=== PATIENT | male | born 1955 | race Caucasian/White ===

== ENCOUNTER 2017-12-04 16:34 | Observation (INO) | payer OTHER ==
[~2017-12-04] VITALS: Ht 180.3 cm; Wt 119.3 kg
[2017-12-04 16:38] VITALS: BP 169/91
[2017-12-04] MEDS ORDERED: ZOLOFT50 MG (16:42)
[2017-12-04] MEDS ORDERED: HUMALOG100 UNIT/1 SUBQ (16:52)
[2017-12-04 17:15] LABS: RBC 4.41 mil/uL (4.50-6.00)
[2017-12-04 17:19] LABS: ANION GAP 12 mmol/L (7-16); BUN 15 mg/dL (7-18); CALCIUM 8.8 mg/dL (8.5-10.1); CHLORIDE 97 mmol/L (98-107); CO2 25 mmol/L (21-32); CREATININE 1.2 mg/dL (0.6-1.3); GLUCOSE 162 mg/dL (70-99); POTASSIUM 3.8 mmol/L (3.5-5.1); SODIUM 134 mmol/L (136-145)
[2017-12-04 17:23] LABS: HEMOGLOBIN 13.7 gm/dL (14.0-18.0); MCH 31.1 pg (26.0-34.0); MCHC 33.5 g/dL (28.0-37.0); MCV 92.9 fL (80.0-100.0); MPV 8.4 fl. (7.2-11.1); NUCLEATED RBCS 1 /100WBC; PLATELET COUNT* 92 thou/uL (150-400); RDW-CV 16.2 % (10.5-14.5); WBC 6.8 thou/uL (4.0-11.0)
[2017-12-04 17:28] LABS: APTT 25.2 Seconds (25.0-31.3); PROTIME 10.5 Seconds (9.20-11.50)
[2017-12-04 17:30] LABS: ALBUMIN 3.2 g/dL (3.4-5.0); ALKALINE PHOSPHATASE 152 U/L (46-116); LIPASE 206 U/L (73-393); NT-PRO BRAIN NAT PEPTIDE 36 pg/mL (<300); SGOT 34 U/L (15-37); SGPT 22 U/L (30-65); TOTAL BILIRUBIN 0.6 mg/dL (<0.1-1.0); TOTAL PROTEIN 6.6 g/dL (6.4-8.2); TROPONIN-I LEVEL <0.06 ng/mL (<0.06)
[2017-12-04 17:58] LABS: ABSOLUTE MONOCYTES 0.6 thou/uL (0.0-1.2); ABSOLUTE NEUTROPHILS 3.2 thou/uL (1.6-8.1)
[2017-12-04 18:00] LABS: ANISOCYTOSIS 1+
[2017-12-04 18:01] LABS: PLATELET ESTIMATE DECREASED; POLYCHROMASIA Occasional
[2017-12-04 18:57] VITALS: BP 138/72
[2017-12-04 19:15] VITALS: BP 155/81
[2017-12-04] MEDS ORDERED: COZAAR 25 MG TA25 MG PO (21:30)
[2017-12-04] MEDS ORDERED: SERTRALINE HCL50 MG PO (21:31)
[2017-12-05] VITALS: BP 134/71
[2017-12-05 04:00] VITALS: BP 119/68
--- NOTE | 2017-12-05 04:52 | NUR ---
PT ARRIVED TO UNIT AT 1910 VIA CART. REPORT RECEIVED FROM ANDRE SWEENEY. SPOUSE AT BEDSIDE. 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 IV MORPHINE ADMINSTERED FOR CHEST PAIN, PT VOICED RELIEF. PT NPO PER CARDIOLOGY. PT EDUCATED AND VOICED UNDERSTANDING. HOURLY ROUNDING COMPLETED. CALL LIGHT WITHIN REACH.
[2017-12-05 08:00] VITALS: BP 151/73
--- NOTE | 2017-12-05 10:03 | EKG ---
[place] [address] ELECTROCARDIOGRAM REPORT Name: KAL LAWRENCE Room: [address]R.#: [id number] Admission: 12/04/17 Attend Phys: Tony Elias MD Discharge: Date of : 57 Report #: [id number] THIS REPORT FOR: //name// [facility] ED Test Date: 2017-12-04 Test Time: 16:38:25 Pat Name: KAL LAWRENCE Department: Room: [facility] Gender: Sql Report Analyst: Debo MATHUR : 1955 Requested By: Camille Reeves Order Number: [id number] MD: Marcos Rojo Measurements Intervals [place] Rate: 112 P: 50 OK: 201 QRS: -61 QRSD: 98 T: 83 QT: 317 QTc: 433 Interpretive Statements Sinus tachycardia Ventricular premature complex Inferior infarct, old Baseline wander in lead(s) V2 No previous ECG available for comparison Electronically Signed On 12-05-2017 10:03:34 CDT by Marcos Rojo [email or web address] <ELECTRONICALLY SIGNED> By: Marcos Rojo MD, FAC 12/05/17 1003 1638 1638 Marcos Rojo MD, [facility] /EPI
--- NOTE | 2017-12-05 10:10 | EKG ---
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: [facility] : 1955 Requested By: Tony Elias Order Number: [id number] Akosua MD: Marcos Rooj Measurements Intervals [place] Rate: 95 P: 232 [place]: 141 QRS: -44 QRSD: 101 T: 56 QT: 364 QTc: 458 Interpretive Statements Sinus or ectopic atrial rhythm ventricular premature complexes Left axis deviation Baseline wander in lead(s) V2,V4,V5,V6 Electronically Signed On 12-05-2017 10:10:11 CDT by Marcos Rojo [email or web address] <ELECTRONICALLY SIGNED> By: Marcos Rojo MD, [facility] 12/05/17 1010 0009 [id number] Marcos Rojo MD, [facility] /EPI
--- NOTE | 2017-12-05 10:12 | EKG ---
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
--- NOTE | 2017-12-05 11:00 | NUR ---
ATTEMPTED TO SEE PT, WAS OFF UNIT
[2017-12-05 14:00] VITALS: BP 151/73
--- NOTE | 2017-12-05 14:27 | EXE ---
[place] [address] STRESS ECHOCARDIOGRAM Name: KAL LAWRENCE Wesly Room: [address] MAneudyRAneudy#: [id number] Admission: 12/04/17 Attend Phys: Tony Elias, Discharge: Date of : 57 Date of Service: 12/05/17 1426 Report #: [id number] THIS REPORT FOR: //name// APPROVED REPORT Study performed: 12/05/2017 11:28:47 Exam: Stress Echocardiogram Indication: Chest pain , Dyspnea Patient Location: In-Patient Stress Nurse: Mary Lemus RN Room #: [facility] Supervising Physician: Marcos Rojo MD Ht: 5 ft 11 in HR: 91 bpm BP: 158/81 mmHg Medical History Cardiac Risk Factors: HTN, Hyperlipidemia, DM, Tobacco History (Former) Procedure The patient underwent an Exercise Stress Test using the Hemanth Protocol. Blood pressure, heart rate, and EKG were monitored. An Echocardiogram was performed by rehabilitation therapy technician in four stages in quad fashion. At peak stress, four selected images were obtained and placed side by side with resting images for comparison. Stress Test Details Stress Test: Exercise stress testing was performed using a Hemanth protocol. HR Resting HR: 91 bpm Max Heart Rate (APMHR): 159 bpm Max HR Achieved: 150 bpm Target HR (85% APMHR): 135 bpm % of APMHR: 94 Recovery HR: 103 bpm HR response to stress: Normal HR response to stress BP Resting BP: 158/81 mmHg Max BP: 233/77 mmHg Recovery BP: 175/83 mmHg ECG Resting ECG: Sinus Rhythm, nonspecific ST-T [address] [address] STRESS ECHOCARDIOGRAM Name: KAL LAWRENCE Room: [address]#: [id number] Admission: 12/04/17 Attend Phys: Tony Elias, Discharge: Date of : 57 Date of Service: 12/05/17 1426 Report #: [id number] Stress ECG: Sinus Tachycardia Maximum ST Deviation: 0 mm Arrhythmia: None Recovery ECG: Sinus Rhythm, nonspecific ST-T abnormalities Recovery ST Deviation: 0 mm Recovery Arrhythmia: None Clinical Reason for Termination: Completed protocol, Dyspnea Exercise duration: 4 min 59 sec Highest Stage Achieved: Stage 2: 2.5 mph at 12% grade. Exercise capacity: 7.00 METs Pre-Stress Echo The resting Echocardiogram showed normal left ventricular contractility with an estimated Ejection Fraction of about 55-60%. Post-Stress Echo The stress Echocardiogram showed normal left ventricular contractility with an estimated Ejection Fraction of about 65-70%. Conclusion Clinical Response: Non-ischemic Exercise Capacity: Below Average Stress ECG Response: Non-ischemic Stress Echo Images: Non-ischemic low risk stress echo for future cardiac events Other Information Study Quality: Adequate <Conclusion> low risk stress echo for future cardiac events <ELECTRONICALLY SIGNED> By: Marcos Rojo MD, FACC 12/05/171425 25 25 Marcos Rojo MD, FACC /INF
[2017-12-05] MEDS ORDERED: CARVEDILOL3.125 MG PO (15:14)
--- NOTE | 2017-12-05 15:17 | NUR ---
DR. MANUEL ROUNDED AND STATED STRESS ECHO WAS NORMAL. OK FOR PATIENT TO DC. DR. DUNBAR ARRANGED OUTPATIENT ONCOLOGY APPT FOR CT FINDINGS.
--- NOTE | 2017-12-05 15:23 | NUR ---
PER DR. MANUEL PATIENT DOES NOT NEED TO DC ON [facility].
[2017-12-05 15:35] VITALS: BP 130/71
--- NOTE | 2017-12-05 15:46 | NUR ---
PATIENT DISCHARGED TO HOME AT THIS TIME. IV REMOVED. ONCOLOGY APPT MADE FOR PATIENT PRIOR TO DC. NO NEW SCRIPTS PROVIDED PER DR. MANUEL. PATIENT AND SPOUSE VERBALIZE UNDERSTANDING OF DC INSTRUCTIONS.
--- NOTE | 2017-12-07 15:13 | CON ---
[address] [address] CONSULTATION Name: KAL LAWRENCE Wesly Room: [address] Samson Odonnell#: [id number] Admission: 12/04/17 Attend Phys: Tony Elias MD Discharge: 12/05/17 Date of : 57 Report #: [id number] THIS REPORT FOR: //name// CC: Tony Escamilla DO Patient's Chart DATE OF SERVICE: 12/05/2017 CARDIOLOGY CONSULTATION PRIMARY CARE PHYSICIAN: Alyce Escamilla DO HISTORY OF PRESENT ILLNESS: The patient is a 62-year-old white male who I was asked to see in the hospital after he complained of chest pain. The patient has no previous history of heart disease. He does not exercise on a regular basis. He has had no previous cardiac evaluation. For the past several days, he has had intermittent dull ache on the left side of the chest that radiates around into his back. It is not related to exertion or meals. That lasts for several minutes and resolves. It tends to come and go. It is worse if he takes a deep breath. He denied any fever or cough. He has noticed some diaphoresis and shortness of breath, but no nausea. He has had no bleeding. Denied any trauma to his chest or rash. He has had no palpitations or syncope. He came to the Emergency Room yesterday and was noted to have an abnormal ECG. He was admitted for further evaluation and treatment. PAST MEDICAL HISTORY: Otherwise significant for removal of a melanoma from his back. He has a history of hypertension, diabetes, hyperlipidemia. MEDICATIONS: Consists of insulin therapy, losartan, sertraline. He was recently started on Lipitor. ALLERGIES: He has no known drug allergies. FAMILY HISTORY: His mother had heart disease. SOCIAL HISTORY: He is , lives in [place]. 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 Quit smoking years ago. No alcohol abuse. REVIEW OF SYSTEMS: He has had no history of stroke, asthma, peptic ulcer disease, liver disease, kidney disease or cancer. He has a history of depression. No chronic skin condition. PHYSICAL EXAMINATION: GENERAL: Revealed a middle-aged male, [place] [address] CONSULTATION Name: KAL LAWRENCE [address] [id number] Admission: 12/04/17 Attend Phys: Tony Elias MD Discharge: 12/05/17 Date of : 57 Report #: [id number] VITAL SIGNS: He had a blood pressure of 140/70, pulse is 90, he is afebrile. HEENT: He is anicteric. Conjunctivae pink. Mucous membranes moist. NECK: Veins nondistended. No carotid bruits. Neck supple. CHEST: Clear to auscultation. CARDIOVASCULAR: Regular rate and rhythm. ABDOMEN: Soft, nontender. EXTREMITIES: Had no edema. Posterior tibial pulse 2+ bilaterally. SKIN: Warm, dry. NEUROLOGIC: Nonfocal. ECG shows a sinus rhythm, left anterior fascicular block, septal Q-waves. His workup yesterday in the Emergency Room, he had a portable chest x-ray that showed normal heart size, clear lung jovel. He had a CT scan of the chest using a PE protocol that showed no pulmonary embolus, mild interstitial lung markings noted, hepatosplenomegaly and adenopathy noted. LABORATORY DATA: He had a lab work done, sodium 137, creatinine 0.8, alkaline phosphatase 131, bilirubin 0.7, albumin 2.9, troponin 0.06. White blood cell count 5.8, hemoglobin 11.8, platelet count is only 79,000. IMPRESSION AND RECOMMENDATIONS: 1. Chest pain. Atypical for angina. Suspect noncardiac. Recommend stress echo. 2. Abnormal EKG. 3. Hypertension. The patient has been on ARB. 4. Diabetes. 5. Hyperlipidemia. The patient recently started on a statin drug. 6. Lymphadenopathy. Evaluate for lymphoma. 7. Thrombocytopenia. 8. History of melanoma. <ELECTRONICALLY SIGNED> By: Marcos Rojo MD, FACC 12/07/17 1513 1027 [id number] Rojo MD, FACC /nt
[2017-12-23] MEDS ORDERED: NORCO 5-325 TA1 EACH PO (15:10)
== END 2017-12-05 15:46 | disposition home or self-care (01) ==
LOC: M.ERS 16:34 → M.2W 18:16 → M.TBA-ER 18:16 → M.2W 19:08
PROVIDERS: Personal Emergency Response Attendant
DX: R07.89 Other chest pain (principal); R94.31 Abnormal electrocardiogram [ECG] [EKG]; E11.9 Type 2 diabetes mellitus without complications; R59.1 Generalized enlarged lymph nodes; D69.6 Thrombocytopenia, unspecified; R79.1 Abnormal coagulation profile; F17.210 Nicotine dependence, cigarettes, uncomplicated; F32.9 Major depressive disorder, single episode, unspecified; E78.5 Hyperlipidemia, unspecified; Z85.820 Personal history of malignant melanoma of skin; Z79.4 Long term (current) use of insulin

== ENCOUNTER → 2017-12-06 | Outpatient (CLI) | payer OTHER ==
[~2017-12-06] MED LIST: CARVEDILOL3.125 MG PO; COZAAR 25 MG TA25 MG PO; HUMALOG100 UNIT/1 SUBQ; NORCO 5-325 TA1 EACH PO; SERTRALINE HCL50 MG PO; ZOLOFT50 MG
[2017-12-06 10:11] LABS: HEMATOCRIT 40.4 % (42.0-52.0); HEMOGLOBIN 13.6 gm/dL (14.0-18.0); MCH 31.1 pg (26.0-34.0); MCHC 33.6 g/dL (28.0-37.0); MCV 92.5 fL (80.0-100.0); MPV 7.7 fl. (7.2-11.1); NUCLEATED RBCS 0 /100WBC; PLATELET COUNT* 91 thou/uL (150-400); RBC 4.37 mil/uL (4.50-6.00); RDW-CV 16.2 % (10.5-14.5); WBC 6.2 thou/uL (4.0-11.0)
[2017-12-06 10:41] LABS: ALBUMIN 3.4 g/dL (3.4-5.0); CALCIUM 8.8 mg/dL (8.5-10.1); CREATININE 0.9 mg/dL (0.6-1.3); POTASSIUM 4.4 mmol/L (3.5-5.1); TOTAL BILIRUBIN 0.8 mg/dL (<0.1-1.0); TOTAL PROTEIN 6.8 g/dL (6.4-8.2); URIC ACID* 7.9 mg/dL (2.6-7.2)
[2017-12-06 11:37] LABS: ABSOLUTE EOSINOPHILS 0.2 thou/uL (0.0-0.7); ABSOLUTE MONOCYTES 0.6 thou/uL (0.0-1.2); ABSOLUTE NEUTROPHILS 2.5 thou/uL (1.6-8.1); ATYPICAL LYMPHS 13 %
[2017-12-06 11:38] LABS: MICROCYTES 2+; POLYCHROMASIA 1+
[2017-12-06 11:40] LABS: GIANT PLATELETS FEW; PLATELET ESTIMATE DECREASED
[2017-12-06 11:48] LABS: % SATURATION 23 % (20-39); IRON 71 ug/dL (50-175)
[2017-12-06 16:11] LABS: HEPATITIS B SURFACE AG Negative (Negative)
--- NOTE | 2017-12-09 14:58 | HEMONC ---
[address] [address] HEMATOLOGY ONCOLOGY NOTE Name: KAL LAWRENCE Room: [facility]#: [id number] Admission: 12/06/17 Attend Phys: Joel Stafford MD Discharge: Date of : 57 Report #: [id number] THIS REPORT FOR: //name// CC: Alyce Stafford DATE OF SERVICE: 12/06/2017 REASON FOR CONSULTATION: Lymphoma. SUBJECTIVE: This is a 62-year-old male who has been complaining of significant fatigue in the last 6 weeks with no stamina or energy; he has been having significant sweats, especially at night. No fevers or weight loss. Was evaluated at the Emergency Room because of left-sided pain. A CT scan of the chest to rule out PE showed no evidence of PE; however, there is bilateral hazy heterogeneous ground glass pulmonary opacities, could be interstitial lung fibrosis; however, there was a mild mediastinal subcarinal bilateral hilar lymphadenopathy, marked hepatosplenomegaly and also abdominal retroperitoneal adenopathy. The patient reported also early satiety. He denies any palpable lymph nodes. REVIEW OF SYSTEMS: All systems were reviewed. It was negative except the above. PAST MEDICAL HISTORY: Includes hypertension, benign essential; dyslipidemia; diabetes mellitus; history of melanoma at his left back with node negative in 2012; osteoarthritis; peripheral vascular disease. PAST SURGICAL HISTORY: Resection of melanoma. MEDICATIONS: He is taking Zoloft 200 mg p.o. daily, losartan 25 mg p.o. daily, atorvastatin 1 tab p.o. daily, Humalog 40 units with meals. SOCIAL HISTORY: He used to be an ex-smoker. He used to smoke one and a half pack between the age of [age]. He does not drink alcohol. ALLERGIES: No known allergies. PHYSICAL EXAMINATION: VITAL SIGNS: Today, blood pressure is 148/82, pulse is 86, respirations 20, temperature is 98.8, sat is 96% on room air. GENERAL: The patient was sitting in chair, was not in acute distress. LUNGS: Clear to auscultations bilaterally. HEART: Regular rate and rhythm. S1, S2 within normal limits. ABDOMEN: Soft, nontender, nondistended, bowel sounds positive. EXTREMITIES: No edema, no cyanosis [place] [address] HEMATOLOGY ONCOLOGY NOTE Name: KAL LAWRENCE Room: [facility]#: [id number] Admission: 12/06/17 Attend Phys: Joel Stafford MD Discharge: Date of : 57 Report #: [id number] LABORATORY DATA: Labs which was done on 12/05/2017 WBC 5.8, hemoglobin 11.5, MCV is 92.6, platelets 79. Sodium is 137, potassium 4.0, anion gap of 11, BUN is 14, creatinine 0.8, calcium is 8.4, total bilirubin 0.7, ALT is 18, AST is 31, alkaline phosphatase 131, total protein 5.6, albumin 2.9. IMAGING: As mentioned above. ASSESSMENT AND PLAN: A 62-year-old male who presented with symptoms of severe fatigue/night sweats. He had a left-sided chest pain; however, his CT scan was negative for pulmonary embolism, but there was significant pulmonary lymphadenopathy with hepatosplenomegaly and also abdominal lymphadenopathy. He had anemia and significant thrombocytopenia. His clinical picture is concerning of active lymphoma. RECOMMENDATIONS: I would like to obtain a PET/CT scan to evaluate excisional biopsy. At the same time, we will obtain a bone marrow biopsy as a part of the staging and due to the significant cytopenias. Follow up will be based on his PET/CT scan findings. <ELECTRONICALLY SIGNED> By: Joel Stafford MD 12/09/17 1458 0928 [id number] Stafford MD /nt
== END ==
LOC: M.RTH 04:49
PROVIDERS: Internal Medicine
DX: C85.90 Non-Hodgkin lymphoma, unspecified, unspecified site (principal); I10 Essential (primary) hypertension; E78.5 Hyperlipidemia, unspecified; E11.9 Type 2 diabetes mellitus without complications; M19.90 Unspecified osteoarthritis, unspecified site

== ENCOUNTER → 2017-12-12 | Outpatient (CLI) | payer OTHER ==
[~2017-12-12] VITALS: Ht 180.3 cm; Wt 119.3 kg
[2017-12-12 09:09] VITALS: BP 151/73
[2017-12-12 09:13] LABS: HEMATOCRIT 37.5 % (42.0-52.0); HEMOGLOBIN 12.5 gm/dL (14.0-18.0); MCH 31.6 pg (26.0-34.0); MCHC 33.3 g/dL (28.0-37.0); NUCLEATED RBCS 1 /100WBC; PLATELET COUNT* 84 thou/uL (150-400); RBC 3.94 mil/uL (4.50-6.00); RDW-CV 16.8 % (10.5-14.5); WBC 4.8 thou/uL (4.0-11.0)
[2017-12-12 09:24] LABS: ANION GAP 10 mmol/L (7-16); BUN 14 mg/dL (7-18); CALCIUM 8.9 mg/dL (8.5-10.1); CHLORIDE 102 mmol/L (98-107); CO2 27 mmol/L (21-32); CREATININE 0.8 mg/dL (0.6-1.3); GLUCOSE 131 mg/dL (70-99); POTASSIUM 4.5 mmol/L (3.5-5.1); SODIUM 139 mmol/L (136-145)
[2017-12-12 09:25] LABS: APTT 22.7 Seconds (25.0-31.3); INR 1.1
[2017-12-12 09:27] LABS: ALBUMIN 3.2 g/dL (3.4-5.0)
[2017-12-12 09:38] LABS: ABSOLUTE BASOPHILS 0.2 thou/uL (0.0-0.2); ABSOLUTE EOSINOPHILS 0.1 thou/uL (0.0-0.7); ABSOLUTE MONOCYTES 0.5 thou/uL (0.0-1.2); ANISOCYTOSIS 1+; ATYPICAL LYMPHS 17 %; METAMYELOCYTES 1 %; PLATELET ESTIMATE DECREASED; POLYCHROMASIA 2+
[2017-12-12 09:41] LABS: ALKALINE PHOSPHATASE 128 U/L (46-116); CHOLESTEROL 190 mg/dL (<200); HDL CHOLESTEROL 26 mg/dL (>40); LDL CHOLESTEROL 140 mg/dL (<100); SGOT 22 U/L (15-37); SGPT 20 U/L (30-65); TC:HDL 7.3 Ratio (Not establshd); TOTAL BILIRUBIN 0.7 mg/dL (<0.1-1.0); TOTAL PROTEIN 6.5 g/dL (6.4-8.2); TRIGLYCERIDE 124 mg/dL (<150); VLDL 25 mg/dL (<40)
[2017-12-12 09:44] LABS: SERUM ASSESSMENT Clear
[2017-12-12 10:45] VITALS: BP 151/73
[2017-12-12 11:09] VITALS: BP 151/73
--- NOTE | 2017-12-22 10:07 | PATH ---
[address] [address] PATHOLOGY RPT PROCEDURE Name: MELVINKAL Jarrell Room: [facility].#: [id number] Admission: 12/12/17 Date of : 57 Discharge: Report #: [id number] Path Case #: [id number] [facility] Accession Number: [id number] . 01 Material submitted: . PART A: BM BX PART B: BM CLOT PART C: BM ASP PART D: PERIPHERAL SMEAR PART E: BONE MARROW FLOW . 01 Clinical history: . Non-Hodgkin's lymphoma 62-year-old man with non-Hodgkin lymphoma, splenomegaly, and thrombocytopenia. . 02 Diagnosis: Bone marrow aspirate, biopsy, cell clot and peripheral blood: - Peripheral blood with thrombocytopenia, mildly left shifted granulocytes, atypical lymphocytes, and circulating nucleated red blood cells. - HYPERCELLULAR BONE MARROW WITH TRILINEAGE HEMATOPOIESIS AND ATYPICAL LYMPHOID INFILTRATE CONSISTENT WITH B-CELL NON-HODGKIN LYMPHOMA (SEE COMMENT). QTP/12/16/2017 . 02 Comment: Overall the bone marrow is hypercellular for the patient's age with trilineage hematopoiesis and an atypical lymphoid infiltrate. It is consistent with B-cell non-Hodgkin lymphoma. The differential diagnosis includes atypical chronic lymphocytic leukemia / small lymphocytic lymphoma, bone marrow involvement of diffuse large B cell lymphoma with discordant morphology and other small B cell lymphomas. It is not consistent with mantle cell lymphoma or sylvia cell leukemia. Correlation with clinical history, additional laboratory data and radiographic findings is recommended. Correlation with cytogenetics and FISH analysis is also required. . The case is discussed with Dr. Stafford preliminarily on 12/14/2017 at 4:15 pm. (CLW:francis 12/16/2017) . 02 Addendum: . Special studies report received from [facility], [address] [place] [address], [place] [address], [place], [address], on case [id number], labeled with their number [id number], dated 12/21/2017. . [place] [address] PATHOLOGY RPT PROCEDURE Name: KAL CHARLES Room: [facility] NANETTE Odonnell#: [id number] Admission: 12/12/17 Date of : 57 Discharge: Report #: [id number] Path Case #: [id number] . Body site: Bone marrow. Specimen received: 2 paraffin-embedded blocks labeled [id number] (A1 and B3). . Clinical History None provided. . Diagnosis BONE MARROW, CORE BIOPSY AND CLOT SECTION: - SOX-11: NEGATIVE IN BOTH CORE BIOPSY AND CLOT SECTION (A1 AND B3). . Specimen [id number] . ANTIBODY/PROBE RESULTS SOX 11 Negative H/E Examined . Specimen [id number] . ANTIBODY/PROBE RESULTS SOX 11 Negative H/E Examined . . at [facility]. Tahira Haley MD . Tests SOX 11, H/E, fhp-Wwezecx-BLOTOK, SOX 11, H/E . Disclaimer This Test was performed by [facility]. at [address] [place] [address], [facility]. [facility] is a business unit of [employer] a wholly-owned subsidiary of [employer]. . . Any image(s) that accompany this report is/are a area representative image(s) only and should not be used to render a diagnosis. . This interpretation is contingent on the specimen and the clinical information received. . For any special tests/stains performed, known positive cells or tissues are tested with each marker and examined to ensure positivity. Positive and negative internal controls, if present[place] [address] PATHOLOGY RPT PROCEDURE Name: KAL CHARLES [facility] [id number] Admission: 12/12/17 Date of : 57 Discharge: Report #: [id number] Path Case #: [id number] . This analysis is an adjunct to the evaluation of the referring physician and does not represent a final diagnosis. . The immunohistochemistry tests performed at [facility] were validated on tissue fixed in 10% neutral buffered formalin. The performance characteristics of the tests performed on tissue processed in other fixatives is not known. . A complete copy of the report is on file. . Professional services performed by [facility]. at [address], [place] [address]. Technical services performed by [facility]. at [address], [place] [address]. . ([facility] 12/21/2017) [facility]/12/21/2017 Addendum Electronically Signed by Judy La MD, Pathologist . 02 Electronically signed: . Judy La MD, Pathologist NPI- [id number] . 01 Gross description: . A. Received in formalin labeled "Kal Charles, core," are 2 needle cores of fairchild bone ranging from 0.6 to1.1 cm in length and measuring 0.2 cm each in diameter. The specimen is submitted entirely in cassette A1, following decalcification. . B. Received in formalin labeled "Melvin Gene, clot," is a segment of dark fairchild blood clot measuring 3.0 x 1.5 x 1.6 cm in maximum dimension. The specimen is filtered and entirely submitted in cassettesB1 through B3. (TSD; 12/12/2017) TOB/TOB . 02 Microscopic: . CBC Data (12/12/17): WBC 4,800 /uL, RBC 3.94, hemoglobin 12.5 g/dL, hematocrit 37.5%, MCV 95.0 fL, MCH 31.6 pg, MCHC 33.3 g/dL, RDW 16.8%, and platelet count 84,000 /uL. White blood cell differential: segs 41%, lymphs 25%, monos 10%, eos 2%, basos 4%. Metas 1% and atypical lymphs 17% with 9 NRBCs/100 WBCs. . Peripheral Blood Smear: Cytomorphological examination of the Tobar's stained peripheral blood smear confirms the provided data. Red blood cells are normocytic and are without significant anisopoikilocytosis. White blood cells are predominantly segmented neutrophils and are without significant dyspoiesis. There is a mild left shift [place] [address] PATHOLOGY RPT PROCEDURE Name: KAL CHARLES Room: [facility]#: [id number] Admission: 12/12/17 Date of : 57 Discharge: Report #: [id number] Path Case #: [id number] noted on scanning. No blasts or Johnathan rods are seen. Lymphocytes are predominantly small, round, and mature appearing with condensed chromatin and scant cytoplasm with admixed larger lymphoid cells, reactive appearing lymphoid cells and large granular lymphocytes. Monocytes are mature. Platelets are moderately decreased in number and mainly normal in morphology with rare larger platelets noted. . Aspirate Smears: Cytomorphological examination of the Tobar's stained aspirate smears shows spicules present. The overall cellularity is approximately 70%. There is an increase is small mature appearing lymphocytes with condensed chromatin and scant cytoplasm. Apart from the lymphocytes, the myeloid to erythroid ratio is 1:1. Full myeloid maturation is identified and is without significant dyspoiesis. Erythroid maturation is mildly dyserythropoietic with irregular nuclear contours and left shifted maturation. In a 500 cell differential, there are 1% blasts (no Johnathan rods are seen), 37% more differentiated myeloids, 35% erythroid precursors, 27% lymphocytes and less than 1% plasma cells. Megakaryocytes are proportional in number and both normal and abnormal in morphology with variable sizes and nuclear abnormalities. There is an atypical lymphoid infiltrate with numerous small round mature appearing lymphocytes with condensed chromatin and scant cytoplasm. No markedly atypical lymphoid cells are seen. Plasma cells are without atypia. Iron stains of the aspirate smears show 0/4+ iron positivity with spicules present. No ringed sideroblasts are identified. . Core Biopsy and Cell Clot: The decalcified bone marrow core biopsy is adequate. The bone marrow is hypercellular with an overall cellularity of approximately 70%. There is an interstitial atypical lymphoid infiltrate composed of small round mature appearing lymphocytes. No well-formed lymphoid aggregates are noted. Apart from the lymphocytes, the myeloid to erythroid ratio is 1:1. Myeloid and erythroid maturation are mildly dyspoietic. Megakaryocytes are normal in number and both normal and abnormal in morphology. Bony trabeculae and blood vessels are unremarkable. The cell clot has spicules present that are similar in cellularity and differential morphology as previously described. Again an atypical lymphoid infiltrate composed of small lymphocytes is noted. . Properly controlled special stains are performed. . Block A1 Iron - 0/4+ iron positivity Reticulin - no significant reticulin fibrosis . Iron (block B1, B2, B3) - trace stainable iron with spicules present. . To further quantify and characterize the neoplastic B-cells and to identify cells in a tissue architectural context, [place] [address] PATHOLOGY RPT PROCEDURE Name: ANDREEAINGRIDKAL Jarrell Room: [facility] Odonnell#: [id number] Admission: 12/12/17 Date of : 57 Discharge: Report #: [id number] Path Case #: [id number] immunohistochemical stains are performed. . Block A1 PAX-5 - stains scattered interstitial neoplastic B-cells comprising 30 to 40% of the marrow cellularity CD79a - stains interstitial neoplastic B-cells comprising approximately 30 to 40% of the marrow cellularity CD3 - highlights admixed T-cells CD5 - highlights admixed T-cells and partial B-cell coexpression CD23 - partial B-cell coexpression Cyclin D1 - no B-cell coexpression Annexin - no B-cell coexpression, highlights myeloids . Block B3 PAX-5 - highlights the neoplastic B-cells scattered and in small aggregates comprising 40% of the marrow cellularity CD79a - highlights neoplastic B-cells scattered and in small aggregates comprising 40% of the marrow cellularity CD3 - highlights admixed T-cells CD5 - highlights admixed T-cells, partial B-cell coexpression CD23 - minimal B-cell coexpression Cyclin D1 - lacks diffuse nuclear staining, no B-cell coexpression Annexin - no B-cell coexpression, highlights myeloids MUM1 - no B-cell coexpression CD10 - no B-cell coexpression BCL6 - no significant B-cell coexpression Ki-67 - lymphocytes appear to have a low proliferative index . Flow Cytometry: Flow cytometric immunophenotypic analysis was performed at [facility]. The diagnosis is "1- monoclonal B-cells detected, consistent with a B-cell lymphoproliferative disorder, 2- myeloid left shift detected". There are 35.5% lymphocytes. Of the lymphocytes, there are 14% T-cells with a CD4/CD8 ratio of 1.5 and no aberrant T-cell antigen expression. There are 78% mature B-cells (28% of total) that are monoclonal with lambda light chain restriction and expressed CD19, CD20, and CD5 (partial). They are negative for CD10, CD11c, CD38 and CD23 (vast majority). These cells are predominantly small by forward scatter. There are 1.6% CD34 positive cells (blasts) and 1% precursor B-cells. There are 0.1% plasma cells. Flow cytometry shows monoclonal B cells (28% of total cells) with partial expression of CD5. A vast majority are negative for CD23. Please see separate flow cytometry report from [facility] ([id number]). . Cytogenetics: Cytogenetic chromosomal analysis is pending at [facility] ([id number]). FISH analysis for t(11; 14) FISH analysis is pending at [facility] ([id number]). (CLW:francis 12/16/2017) [place] [address] PATHOLOGY RPT PROCEDURE Name: ANDREEAINGRIDKAL Jarrell Room: [facility]#: [id number] Admission: 12/12/17 Date of : 57 Discharge: Report #: [id number] Path Case #: [id number] . 02 Pathologist provided ICD-10: D69.6, C85.80 . 02 CPT . 373867, 089822, 823713, 570448, 481554, 938056, 568243, 508390, 248759, 024993, C22130, M57608, 895527 Specimen Comment: A courtesy copy of this report has been sent to Specimen Comment: [phone], . Specimen Comment: Report sent to / DR SMITH Specimen Comment: A duplicate report has been generated due to demographic updates. Performed at: 01 [facility] [place] [address] [id number] MD Baltazar Stephen MD Phone: [phone] Performed at: [address] [place] [id number] [address] [id number] MD Yoav Causey MD Phone: [phone]
== END | disposition home or self-care (01) ==
LOC: M.INT 08:17
PROVIDERS: Radiology Diagnostic Radiology
DX: C85.90 Non-Hodgkin lymphoma, unspecified, unspecified site (principal); D69.6 Thrombocytopenia, unspecified; R16.1 Splenomegaly, not elsewhere classified; E11.9 Type 2 diabetes mellitus without complications; I10 Essential (primary) hypertension; E78.00 Pure hypercholesterolemia, unspecified; F17.210 Nicotine dependence, cigarettes, uncomplicated; F32.9 Major depressive disorder, single episode, unspecified; Z79.899 Other long term (current) drug therapy; Z85.828 Personal history of other malignant neoplasm of skin; Z79.4 Long term (current) use of insulin; Z79.01 Long term (current) use of anticoagulants

== ENCOUNTER → 2017-12-20 | Outpatient (CLI) | payer OTHER ==
--- NOTE | 2017-12-23 10:25 | HEMONC ---
[address] [address] HEMATOLOGY ONCOLOGY NOTE Name: KAL LAWRENCE Room: [facility]#: [id number] Admission: 12/20/17 Attend Phys: Joel Stafford MD Discharge: Date of : 57 Report #: [id number] THIS REPORT FOR: //name// CC: Alyce Stafford DATE OF SERVICE: 12/20/2017 REASON FOR CONSULTATION: Newly diagnosed non-Hodgkin's lymphoma. SUBJECTIVE: The patient underwent PET/CT scanning, which showed left maxillary sinus wall demonstrated lytic defect. In addition to that, there was a bilateral submandibular level and bilateral jugular chain level hypermetabolic area. In addition to that, there is bilateral axillary lymphadenopathy. In addition to this, he had massive splenomegaly measuring 30 cm. Bone marrow biopsy was obtained initially due to thrombocytopenia and anemia, which came back as a hypercellular bone marrow with trilineage hematopoiesis, atypical lymphoid infiltrates consistent with B-cell non-Hodgkin lymphoma, unable to determine whether this is a CLL versus mantle cell. I discussed these findings with the patient. Plan is to arrange for the placement in preparation for systemic treatment. In addition to that, we will obtain an axillary lymph node biopsy done by Surgery. REVIEW OF SYSTEMS: All systems were reviewed and it was negative except the patient reported new painful lymph nodes at the right cervical area. PHYSICAL EXAMINATION: VITAL SIGNS: Today, blood pressure is 149/77, pulse is 98, respirations 18, temperature 98.3, saturations 96% on room air. GENERAL: The patient was sitting in chair, was not in acute distress. LUNGS: Clear to auscultations bilaterally. HEART: Regular rate and rhythm. S1, S2 within normal limits. ABDOMEN: Soft, nontender, nondistended. ASSESSMENT AND PLAN: 1. A 62-year-old male who was newly diagnosed with stage IV non-Hodgkin lymphoma with multiple lymphadenopathy. A bone marrow involvement, massive splenomegaly, and cytopenias. The bone marrow biopsy showed B-cell non-Hodgkin lymphoma; however, was not able to tell whether this is a chronic lymphocytic leukemia versus another type of non-Hodgkin. We will arrange for recommendations. We referred to for excisional biopsy of the most accessible lymph nodes, which based on the PET/CT [place] [address] HEMATOLOGY ONCOLOGY NOTE Name: CHNIYERECAILINKAL Wesly Room: [facility]#: [id number] Admission: 12/20/17 Attend Phys: Joel Stafford MD Discharge: Date of : 57 Report #: [id number]. 2. We will arrange for port placement. I am planning for systemic treatments. <ELECTRONICALLY SIGNED> By: Joel Stafford MD 12/23/17 1025 1036 025MD nelsy Canchola
== END ==
LOC: M.RTH 02:22 → EDSTATUS 09:30 → M.RTH 09:30
DX: C85.90 Non-Hodgkin lymphoma, unspecified, unspecified site (principal)

== ENCOUNTER → 2017-12-23 | Day surgery (SDC) | payer OTHER ==
--- NOTE | ~2017-12-23 | OP ---
[address] [address] OPERATIVE REPORT Name: KAL LAWRENCE Room: [facility]#: [id number] Admission: 12/23/17 Attend Phys: Libby Wolfe MD Discharge: Date of : 57 Report #: [id number] THIS REPORT FOR: //name// CC: Alyce Stafford DATE OF SERVICE: 12/23/2017 PREOPERATIVE DIAGNOSIS: Lymphoma. POSTOPERATIVE DIAGNOSIS: Lymphoma. SURGEON: Libby Wolfe MD. EXECUTIVE MANAGER: THERESA Gilmore. ANESTHESIA: General anesthesia. PROCEDURE: 1. Left subclavian vein MediPort placement with fluoroscopic guidance. 2. Left axillary excisional lymph node biopsy. FINDINGS: Fluoroscopy showing the tip of the MediPort catheter in the SVC and enlarged abnormal-appearing lymph node in the left axilla. ESTIMATED BLOOD LOSS: 5 mL. SPECIMENS REMOVED: Left axillary lymph node. COMPLICATIONS: None. INDICATIONS: The patient is a very pleasant 62-year-old male who had had imaging procedure performed when he came to the Emergency Department for chest pain. At that time, he was noted to have significant lymphadenopathy and splenomegaly. He went through a subsequent workup and was incidentally ended up having a bone marrow biopsy given the diagnosis of lymphoma, although could not specify more of the type. Therefore, he was sent to me at the request of Dr. Stafford for an excisional lymph node biopsy and placement of a MediPort. Risks and benefits for both of these procedures were discussed with the patient and delineated in the H and P and he agreed to proceed. DESCRIPTION OF PROCEDURE: The patient was brought to the operating room after informed consent had been obtained. He was placed under general anesthesia in the supine position with bilateral arms tucked. A shoulder roll was placed and bilateral chest and neck were prepped and [place]ed [place] [address] OPERATIVE REPORT Name: KAL LAWRENCE Room: [facility]#: [id number] Admission: 12/23/17 Attend Phys: Libby Wolfe MD Discharge: Date of : 57 Report #: [id number] Attention was first turned to the left subclavian region. The left subclavian vein was accessed on the first attempt with the needle. The guidewire was placed under Seldinger technique and fluoroscopy confirmed adequate placement. Appropriate skin anesthesia with 0.5% Marcaine with epinephrine was used to create the proposed skin pocket. The skin incision was made in this region with a knife. This was deepened into the subcutaneous tissues using the Bovie electrocautery. A pocket was created of adequate size for the MediPort with the use of both blunt and Bovie dissection. Once this was of adequate size, the dilator and sheath were passed over the guidewire under direct visualization and fluoroscopic visualization and Seldinger technique. The guidewire and dilator were then removed. The MediPort tubing was then introduced to the sheath. The break-away sheath was removed. The MediPort tubing was trimmed to the appropriate length and it was affixed to the MediPort device. It was then placed in the pocket. Fluoroscopy confirmed everything to be in adequate place. The port aspirated and flushed with injectable saline without issue. It was then locked with 5 mL of heparin lock solution. Pressure was applied for some oozing from the stick site for approximately 2 minutes, then I proceeded with closure. The deep dermal layers were closed with interrupted 3-0 Vicryl sutures. The skin was closed with 4-0 Monocryl in a subcuticular manner. A sterile dressing was applied and the drapes were taken down for the axillary lymph node biopsy. Bilateral arms were out to his sides. Axillary hair was trimmed and the left axilla was then prepped and draped in normal sterile manner. Prior to skin incision, 0.5% Marcaine with epinephrine was used for local anesthesia. A skin incision was made in the region of the axilla with a knife. This was deepened into the subcutaneous tissues using the Bovie electrocautery. The Weitlaner retractor was placed. The axillary fascia was divided and digital palpation was used to identify any enlarged lymph nodes. Enlarged lymph node with a deep purplish hue was identified. This was isolated with a combination of Ligaclip and Bovie electrocautery dissection. Once completely removed, it was handed off for specimen. Pathology obtained the specimen and sent segments for flow cytometry. There were additional enlarged lymph nodes palpable in the axilla, but I did not proceed with excision of any others. The axilla was copiously irrigated with normal saline. It was noted to be adequately hemostatic. The axillary fascia was closed with a single interrupted suture of 3-0 Vicryl. The deep dermal layers were closed with interrupted 2-0 Vicryl sutures and skin was closed with 4-0 Monocryl in a subcuticular manner. Both wounds were then dressed with Dermabond dressing. The patient tolerated the procedure well. Sponge, lap and needle counts were correct x 2 at the end of the procedure. He was transferred to recovery in stable condition. A portable chest x-ray will be performed while in recovery. By: 1455 [id number] Wolfe MD /rashawn
[2017-12-23 11:52] LABS: HEMATOCRIT 38.1 % (42.0-52.0); HEMOGLOBIN 12.6 gm/dL (14.0-18.0); MCH 31.8 pg (26.0-34.0); MCHC 33.1 g/dL (28.0-37.0); MCV 96.2 fL (80.0-100.0); MPV 8.1 fl. (7.2-11.1); RBC 3.96 mil/uL (4.50-6.00); RDW-CV 16.7 % (10.5-14.5); WBC 4.8 thou/uL (4.0-11.0)
[2017-12-23 12:02] LABS: CALCIUM 8.5 mg/dL (8.5-10.1); CREATININE 0.9 mg/dL (0.6-1.3); POTASSIUM 4.3 mmol/L (3.5-5.1)
[2017-12-23 12:06] LABS: ALBUMIN 3.1 g/dL (3.4-5.0); TOTAL BILIRUBIN 0.7 mg/dL (<0.1-1.0); TOTAL PROTEIN 6.2 g/dL (6.4-8.2)
--- NOTE | 2018-01-02 10:06 | PATH ---
[address] [address] PATHOLOGY RPT PROCEDURE Name: KAL LAWRENCE Room: [facility]#: [id number] Admission: 12/23/17 Date of : 57 Discharge: Report #: [id number] Path Case #: [id number] [facility] Accession Number: [id number] . 01 Material submitted: . LEFT AXILLARY LYMPH NODE . 01 Clinical history: . Lymphoma. . 02 Diagnosis: Please see included [facility] report [id number]. . . "Left axillary lymph node", excisional biopsy: - LYMPH NODE SHOWING LOW-GRADE B-CELL LYMPHOMA WITH RARE SCATTERED LARGER CELLS. (SEE COMMENT) AZJ/12/30/2017 . 02 Comment: Sections show fragments of lymph node with effaced joey architecture. There is a diffuse monotonous population of small round mature appearing lymphocytes with condensed chromatin and scant cytoplasm. Rare scattered larger lymphoid cells with irregular nuclear contours and moderate to abundant cytoplasms are noted. These larger cells appear to be in relation to collections of T cells. Neither a high mitotic rate nor abundant single cell necrosis is identified. Geographic necrosis is not seen. . To confirm the flow cytometry findings and to further evaluate the scattered large atypical cells, properly controlled immunohistochemical stains are performed. . Block A1: CD20 - stains the neoplastic B-cells and scattered large cells. PAX5 - diffusely stains the neoplastic B-cells including the larger cells. CD3 - highlights admixed small T-cells. CD5 - highlights admixed T-cells with partial B-cell coexpression. CD10 - stains rare cells. BCL6 - intensely stains rare scattered cells. BCL2 - diffusely reactive. CD23 - partial B-cell coexpression including the scattered larger cells. Cyclin D1 - lacks diffuse nuclear staining. MUM1 - stains rare scattered small cells. CD30 - the large cells are nonreactive. CD15 - the large cells are nonreactive. MOLLY - the large cells are nonreactive. ALK1 - the large cells are nonreactive. CD56 - stains rare scattered small cells, [place] [address] PATHOLOGY RPT PROCEDURE Name: KAL LAWRENCE Wesly Room: [facility]#: [id number] Admission: 12/23/17 Date of : 57 Discharge: Report #: [id number] Path Case #: [id number] CD4 - stains admixed T-cells, the large cells appear nonreactive. CD43 - stains admixed T-cells, the large cells are nonreactive. Ki-67 - proliferative index of approximately 30% including the larger cells. [place] and lambda in situ hybridization - rare plasma cells appear polytypic. . Flow cytometric immunophenotypic analysis was performed at [facility]. The diagnosis is "monotypic (clonal) B-cell population detected (58% of sample)" There are 58% abnormal B-cells that are small to intermediate in cell size and characterized as CD45 pos, CD19 pos, CD20 pos, CD5 neg, CD10 neg, CD23 neg/pos, FMC7 neg, CD30 neg, CD38 neg, CD43 neg, HLA-DR pos and surface lambda pos. Of the 14% remaining lymphocytes, there are 1% polyclonal B-cells. T-cells have a CD4/CD8 ratio of 6.9 and no aberrant T-cell antigen expression. The findings are consistent with B-cell non-Hodgkin lymphoma. Please see separate flow cytometry report from [facility] ([id number]). . Overall the diagnosis is involvement of the lymph node by low-grade B-cell lymphoma with scattered larger lymphoid cells. The diagnosis of atypical chronic lymphocytic leukemia/small lymphocytic lymphoma is favored. Joey marginal zone lymphoma is also within the histologic differential diagnosis. Both lymphomas can contain scattered larger cells and the significance of the larger cells is unclear. In the setting of chronic lymphocytic leukemia/small lymphocytic lymphoma, scattered larger cells may represent a more aggressive clinical course. The morphology and/or immunophenotype is not that of diffuse large B cell lymphoma or Hodgkin lymphoma and Mantle cell lymphoma was excluded on the bone marrow biopsy. The immunophenotype and cellular morphology are similar to that which was identified in the bone marrow biopsy ([id number]). Clinical and radiographic correlation is required. . The case is co-reviewed with Dr. Dominique Mendieta. The case was discussed preliminarily with Dr. Wolfe on 12/29/2017 at approximately 9:00 AM. (CLW:francis 12/30/2017) . 02 Electronically signed: . Judy La MD, Pathologist NPI- [id number] . 01 Gross description: . The specimen is received in two containers, both labeled "Alumbaugh, Gene, left axillary lymph node". One container is filled with formalin and contains multiple fragments of fairchild-brown possible lymph node measuring in aggregate 2.2 x 1.6 x 0.6 cm. These pieces are sectioned and submitted entirely in cassettes A1-A3. The second container is filled with RPMI media and contains a fairchild-brown fragment of possible lymph node measuring 1.0 x 0.7 x 0.5 cm. This portion is entirely forwarded for ancillary studies. ([facility]; 12/25/2017) [place] [address] PATHOLOGY RPT PROCEDURE Name: KAL LAWRENCE Room: [facility]#: [id number] Admission: 12/23/17 Date of : 57 Discharge: Report #: [id number] Path Case #: [id number] SYC/SYC . 02 Microscopic: . Special studies report received from [facility], [address] [place] [address], [address], [place], [address], on case [id number], labeled with their number [id number], dated 12/27/2017. . Flow Cytometry: Hematologic Neoplasia Assessment . Clinical History Rule Out Leukemia/Lymphoma . Indication for Study Evaluation for hematolymphoid neoplasia . Specimen Lymph Node, Left Axillary . Viability 71% (7AAD exclusion) . Interpretation Lymph Node, Left Axillary: Monotypic (clonal) B-cell population detected (58% of sample) (see comments) . Comments Findings are consistent with B-cell non-Hodgkin lymphoma. Similar results may represent marginal zone lymphoma or lymphoplasmacytic lymphoma, but follicular lymphoma may occasionally appear CD10- and mantle cell lymphoma and atypical/immunophenotypic variants of small lymphocytic lymphoma (SLL) may infrequently appear CD5- by flow cytometry. Correlation with all available clinical, laboratory, and morphologic data is recommended. If needed, FISH testing (IGH/BCL2, CCND1/IGH, MALT) and MYD88 testing are available. . Populations Analyzed Abnormal B-cells: 58% Scatter properties compatible with small to intermediate cell size, cells characterized as: CD45+, CD19+, CD20+, CD5-, CD10-, CD23-/+, FMC7-, CD30-, CD38-, CD43-, HLA DR+, sIg lambda+ Remaining 14% B-cells: 1%, polytypic/polyclonal sIg light Lymphocytes: chain pattern T-cells: no significant abnormalities of the markers tested CD4:CD8: 6.9 NK cells: 0.3% CD45 Negative 28% No significant reactivity with the markers tested Events/Debris: (may represent non-hematolymphoid cells, [place] [address] PATHOLOGY RPT PROCEDURE Name: KAL LAWRENCE Room: [facility]#: [id number] Admission: 12/23/17 Date of : 57 Discharge: Report #: [id number] Path Case #: [id number] degenerated cells, debris, unlysed red blood cells, etc.) . Morphologic Evaluation A slide was reviewed for manufacturing quality inspector purposes only. . Specimen Description Cell Yield: 11.0x10 6 . Pertinent Prior Test Results Received Date Test Type Specimen Type Result 12/15/2017 Consult Tissue Result Number: [id number] BONE MARROW, CORE BIOPSY AND CLOT SECTION: - SOX-11: NEGATIVE IN BOTH CORE BIOPSY AND CLOT SECTION (A1 AND B3). 12/15/2017 Virtual Studies- Tissue Result Number: Level 1 [id number] . . Reagent(s) Used CD2, CD3, CD4, CD5, CD7, CD8, CD10, CD11b, CD19, CD20, CD23, CD30, CD38, CD43, CD45, CD56, CD57, FMC-7, HLA-DR, kappa, lambda . at [facility]. Chary Loya MD Hematopathologist . Intended Use Flow cytometry is optimally used to immunophenotypically characterize abnormal populations when they are detected. Negative flow cytometry results do not exclude lymphoma or neoplasia. Possible false negative flow cytometry results may occur in, but are not limited to, the following: neoplastic cells in Hodgkin lymphoma are not typically adequately represented by routine clinical flow cytometry; neoplastic cells may be lost or inadequately represented due to degeneration, sample processing, sampling artifact, or patchy involvement; plasma cells are typically underrepresented by flow cytometry; immature cells/blasts may be underrepresented due to hemodilution; myeloproliferative disorders and low grade myelodysplasia may not have immunophenotypic abnormalities or increased blasts. Correlation with all available clinical, laboratory, and morphologic data is always necessary to assess for the possibility of false negative flow cytometry results and to establish a diagnosis. Each marker in this analysis was used to assess for potential antigenic abnormalities [place] [address] PATHOLOGY RPT PROCEDURE Name: KAL LAWRENCE Room: [facility].#: [id number] Admission: 12/23/17 Date of : 57 Discharge: Report #: [id number] Path Case #: [id number] . Disclaimer(s) This test was performed at [facility]. at [address] [facility] [address], [place], [address] - Ems Manager: Dhiraj Sharpe MD. [employer] is a business unit of [employer] a wholly-owned subsidiary of [employer]. . Any image or images that accompany this report are b2b sales representative images only and should not be used to render a diagnosis. . This test was developed and its performance characteristics determined by [employer]. It has not been cleared or approved by the Food and Drug Administration (FDA). The FDA has determined that such clearance or approval is not necessary. . For inquiries, the physician may contact Lab: [phone] . A complete copy of the report is on file. . Professional services performed by [facility]. at [address], [place] [address]. Technical services performed by [facility]. at [address], [place] [address]. . ([facility] 12/27/2017) . 02 Pathologist provided ICD-10: C85.19 . 02 CPT . 401192, H24390, J05154, 397218, E67073, Q49653 Specimen Comment: A courtesy copy of this report has been sent to Specimen Comment: [phone], , . Specimen Comment: Report sent to ,DR SMITH / DR FOUNTAIN Specimen Comment: A duplicate report has been generated due to demographic updates. Performed at: [address] [place] [address] [address] [facility] [address], [place] [id number] MD Baltazar Stephen MD Phone: [phone] Performed at: 02 [facility] [address], [place], [place] [id number] MD Paulino Rudd MD Phone: [phone]
== END | disposition home or self-care (01) ==
LOC: M.SUR 09:50
PROVIDERS: Surgery
DX: Z45.2 Encounter for adjustment and management of vascular access device (principal); C85.84 Other specified types of non-Hodgkin lymphoma, lymph nodes of axilla and upper limb; I10 Essential (primary) hypertension; E11.9 Type 2 diabetes mellitus without complications; E78.5 Hyperlipidemia, unspecified; F32.9 Major depressive disorder, single episode, unspecified; F17.210 Nicotine dependence, cigarettes, uncomplicated; Z80.7 Family history of other malignant neoplasms of lymphoid, hematopoietic and related tissues; Z79.4 Long term (current) use of insulin; Z79.899 Other long term (current) drug therapy; Z85.828 Personal history of other malignant neoplasm of skin; Z79.891 Long term (current) use of opiate analgesic; Z98.890 Other specified postprocedural states